=== PATIENT | male | born 1985 | race American Indian/Alaskan Native ===

== ENCOUNTER 2017-09-08 17:34 | Emergency (ER) | payer SELFPAY ==
[2017-09-08] MEDS ORDERED: ASPIRIN PO ONE (17:52)
[2017-09-08 18:28] LABS: Basophils # (Auto) 0.1 K/mm3 (0.0-0.1); Eosinophils # (Auto) 0.1 K/mm3 (0.0-0.4); Eosinophils % (Auto) 2.2 % (0.0-4.3); Hematocrit 46.9 % (35.5-45.6); Hemoglobin 15.3 gm/dl (11.8-15.2); Lymphocytes # (Auto) 1.8 K/mm3 (1.2-5.4); Lymphocytes % (Auto) 29.7 % (13.4-35.0); Mean Corpuscular HGB Conc 33 % (32-34); Mean Corpuscular Hemoglobin 26 pg (28-32); Mean Corpuscular Volume 80 fl (84-94); Monocytes # (Auto) 0.4 K/mm3 (0.0-0.8); Monocytes % (Auto) 7.2 % (0.0-7.3); Platelet Count 337 K/mm3 (140-440); Red Blood Count 5.85 M/mm3 (3.65-5.03); Red Cell Distribution Width 13.7 % (13.2-15.2)
[2017-09-08 18:51] LABS: BUN/Creatinine Ratio 9; Blood Urea Nitrogen 9 mg/dL (9-20); Calcium 9.5 mg/dL (8.4-10.2); Hemolysis Index 133
--- NOTE | 2017-09-08 19:40 | XRay Report ---
FINAL REPORT EXAM: XR KNEE 3V RT HISTORY: RIGHT KNEE PAIN TECHNIQUE: Right knee 2 views PRIORS: None. FINDINGS: No fracture is identified. No dislocation seen. No evidence of joint effusion. Patella demonstrates normal positioning. No acute bony abnormality identified. IMPRESSION: Negative knee series
[2017-09-08 21:40] VITALS: BP 116/60
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
[2017-09-08] MEDS: NORCO 5/325 PO ONE (22:15)
[2017-09-08] MEDS: MOTRIN PO ONE (22:15)
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
== END 2017-09-08 23:00 | disposition home or self-care (01) ==
LOC: ED 17:34
DX: S83.91XA Sprain of unspecified site of right knee, initial encounter (principal); S20.219A Contusion of unspecified front wall of thorax, initial encounter; V49.9XXA Car occupant (driver) (passenger) injured in unspecified traffic accident, initial encounter; Y93.89 Activity, other specified; Y99.8 Other external cause status; Y92.410 Unspecified street and highway as the place of occurrence of the external cause
CPT/HCPCS: 36415; 71046; 80048; 84484; 85025; 99285